=== PATIENT | female | born 1965 | race Caucasian/White ===

== ENCOUNTER 2020-07-24 14:37 | Inpatient (IN) ==
[2020-07-24] MEDS: 0.9 % Sodium Chloride 1,000 ML IVC SCH (15:45)
[2020-07-24 17:01] LABS: Bacteria,Urine Few per hpf (None-Few); Bilirubin,Urine Negative (Negative); Blood,Urine Negative (Negative); Clarity,Urine Clear (Clear); Color,Urine Light-Yellow (Yellow); Glucose,Urine (UA) Normal (Normal); Hyaline Casts,Urine Few per lpf (None Seen); Ketones,Urine Negative (Negative); Leukocyte Esterase,Urine Moderate (Negative); Nitrite,Urine Negative (Negative); PH,Urine 5.5 pH Units (5.0-8.0); Protein,Urine Trace mg/dL (Neg-Trace); RBC,Urine 0-3 per hpf (0-3); Specific Gravity,Urine 1.012 (1.010-1.025); Squamous Epithelial Cell,Urine Few per hpf (None-Few); Urobilinogen,Urine Normal (Normal); WBC,Urine 15-30 per hpf (0-3)
[2020-07-24 17:02] LABS: Sodium, Urine 23.1 mEq/L
[2020-07-24] MEDS ORDERED: Naloxone 0.4 MG/ML INJ IVP PRN (17:30)
[2020-07-24] MEDS: *HR* Heparin 5,000 UNIT/ML VIAL SQ SCH (17:58)
[2020-07-25] MEDS: 0.9 % Sodium Chloride 1,000 ML IVC SCH ×2 (03:57→12:20)
[2020-07-25] MEDS: *HR* Heparin 5,000 UNIT/ML VIAL SQ SCH ×2 (05:01→15:59)
[2020-07-25 05:44] LABS: Eosinophils # 0.2 K/mcL (0.0-0.6); Eosinophils % 4.4 %; Hematocrit 22.6 % (35.3-44.9); Immature Granulocytes % 0.5 % (0-4); Lymphocytes # 1.1 K/mcL (0.6-4.6); Lymphocytes % 25.9 %; Mean Corpuscular HGB Conc 32.7 g/dL (31.6-35.5); Mean Corpuscular Volume 100.9 fL (83.0-100.0); Mean Platelet Volume 10.3 fL (9.4-12.4); Monocytes # 0.6 K/mcL (0.0-1.3); Monocytes % 14.6 %; Neutrophils # 2.2 K/mcL (1.6-8.9); Platelet Count 276 K/mcL (140-400); Red Blood Count 2.24 M/mcL (3.82-4.97); Red Cell Distribution Width 12.3 % (11.5-14.5); Segmented Neutrophils % 53.6 %
[2020-07-25 05:45] LABS: Hemoglobin 7.4 g/dL (11.5-15.4); White Blood Count 4.1 K/mcL (4.3-11.1)
[2020-07-25 06:05] LABS: Calcium 9.1 mg/dL (8.6-10.3); Magnesium 1.9 mg/dL (1.6-2.6); Potassium 3.5 mEq/L (3.5-5.1)
[2020-07-25 06:26] LABS: Folate 4.4 ng/mL (3.0-16.0)
[2020-07-25] MEDS ORDERED: hydrOXYzine pamoate 25 MG CAPSULE PO PRN (10:31)
[2020-07-25] MEDS ORDERED: Famotidine 20 MG TABLET PO PRN ×2 (10:31→12:56)
[2020-07-25] MEDS ORDERED: 0.9 % Sodium Chloride 500 ML IVC ONE (13:03)
[2020-07-25] MEDS: cefTRIAXone 1,000 MG in Water for inj. (sterile) 10 ML IVP SCH (13:08)
[2020-07-25 13:45] LABS: % Iron Saturation 33 % (15-50); Iron 70 mcg/dL (50-170); Transferrin 152 mg/dL (203-362)
[2020-07-25 13:47] LABS: Complement C3 110 mg/dL (87-200); Rheumatoid Factor < 10 IU/mL (Less than 14)
[2020-07-25 14:00] LABS: Ferritin 579 ng/mL (10-120)
[2020-07-25 14:25] LABS: Hepatitis B Surface Antigen Nonreactive (Nonreactive)
[2020-07-25 14:54] LABS: Hepatitis C Virus Antibody Nonreactive (Nonreactive)
[2020-07-25 14:55] LABS: Hepatitis B Core IgM Nonreactive (Nonreactive)
[2020-07-25 14:56] LABS: Hepatitis A Antibody IgM Nonreactive (Nonreactive)
[2020-07-25] MEDS: Sucralfate 1 GM TABLET PO SCH (15:57)
[2020-07-26] MEDS: 0.9 % Sodium Chloride 1,000 ML IVC SCH ×3 (00:14→20:16)
[2020-07-26 04:47] LABS: Basophils % 1.1 %; Eosinophils # 0.2 K/mcL (0.0-0.6); Eosinophils % 4.5 %; Hematocrit 23.4 % (35.3-44.9); Hemoglobin 7.8 g/dL (11.5-15.4); Immature Granulocytes % 0.6 % (0-4); Lymphocytes # 1.3 K/mcL (0.6-4.6); Lymphocytes % 36.1 %; Mean Corpuscular HGB Conc 33.3 g/dL (31.6-35.5); Mean Corpuscular Hemoglobin 33.9 pg (28.0-33.3); Mean Corpuscular Volume 101.7 fL (83.0-100.0); Mean Platelet Volume 10.4 fL (9.4-12.4); Monocytes # 0.5 K/mcL (0.0-1.3); Monocytes % 14.4 %; Neutrophils # 1.5 K/mcL (1.6-8.9); Platelet Count 307 K/mcL (140-400); Red Cell Distribution Width 12.4 % (11.5-14.5); Segmented Neutrophils % 43.3 %; White Blood Count 3.6 K/mcL (4.3-11.1)
[2020-07-26 05:05] LABS: Calcium 8.7 mg/dL (8.6-10.3); Magnesium 1.8 mg/dL (1.6-2.6); Phosphorous 3.4 mg/dL (2.7-4.5); Potassium 3.3 mEq/L (3.5-5.1)
[2020-07-26] MEDS: *HR* Heparin 5,000 UNIT/ML VIAL SQ SCH ×2 (05:31→17:46)
[2020-07-26] MEDS: Loratadine 10 MG TABLET PO SCH (09:19)
[2020-07-26] MEDS: Sucralfate 1 GM TABLET PO SCH ×2 (09:20→15:45)
[2020-07-26] MEDS: cefTRIAXone 1,000 MG in Water for inj. (sterile) 10 ML IVP SCH (15:45)
[2020-07-26] MEDS: DiphenhydraMINE CREAM 28.4 GM TUBE TP PRN (20:16)
[2020-07-27 01:13] LABS: Basophils % 0.9 %; Eosinophils # 0.2 K/mcL (0.0-0.6); Eosinophils % 4.5 %; Hematocrit 22.8 % (35.3-44.9); Hemoglobin 7.4 g/dL (11.5-15.4); Immature Granulocytes % 0.6 % (0-4); Lymphocytes # 1.3 K/mcL (0.6-4.6); Lymphocytes % 38.5 %; Mean Corpuscular HGB Conc 32.5 g/dL (31.6-35.5); Mean Corpuscular Volume 101.8 fL (83.0-100.0); Mean Platelet Volume 10.1 fL (9.4-12.4); Monocytes # 0.5 K/mcL (0.0-1.3); Monocytes % 13.9 %; Neutrophils # 1.4 K/mcL (1.6-8.9); Platelet Count 302 K/mcL (140-400); Red Blood Count 2.24 M/mcL (3.82-4.97); Red Cell Distribution Width 12.6 % (11.5-14.5); Segmented Neutrophils % 41.6 %; White Blood Count 3.3 K/mcL (4.3-11.1)
[2020-07-27 01:32] LABS: Calcium 8.6 mg/dL (8.6-10.3); Magnesium 1.7 mg/dL (1.6-2.6); Phosphorous 2.6 mg/dL (2.7-4.5); Potassium 4.3 mEq/L (3.5-5.1)
[2020-07-27] MEDS: 0.9 % Sodium Chloride 1,000 ML IVC SCH ×2 (06:03→17:00)
[2020-07-27] MEDS: *HR* Heparin 5,000 UNIT/ML VIAL SQ SCH ×2 (06:04→17:01)
[2020-07-27] MEDS: Sucralfate 1 GM TABLET PO SCH ×2 (07:54→17:01)
[2020-07-27] MEDS: DiphenhydraMINE CREAM 28.4 GM TUBE TP PRN ×2 (07:57→17:09)
[2020-07-27] MEDS: Loratadine 10 MG TABLET PO SCH (07:59)
[2020-07-27 10:32] LABS: Serine Protease-3 Antibody 4 AU/mL (0-19)
[2020-07-27] MEDS: cefTRIAXone 1,000 MG in Water for inj. (sterile) 10 ML IVP SCH (14:29)
[2020-07-28] MEDS: Ondansetron 4 MG/2 ML VIAL IVP PRN ×3 (00:30→23:03)
[2020-07-28 02:27] LABS: Calcium 9.1 mg/dL (8.6-10.3); Potassium 4.2 mEq/L (3.5-5.1)
[2020-07-28] MEDS: 0.9 % Sodium Chloride 1,000 ML IVC SCH (02:58)
[2020-07-28] MEDS: *HR* Heparin 5,000 UNIT/ML VIAL SQ SCH ×2 (05:05→16:10)
[2020-07-28 08:14] LABS: ANA IgG by ELISA NONE DETECTED (None Detected)
[2020-07-28 08:44] LABS: Basophils % 1.1 %; Eosinophils # 0.2 K/mcL (0.0-0.6); Eosinophils % 4.4 %; Hematocrit 21.6 % (35.3-44.9); Immature Granulocytes % 0.3 % (0-4); Lymphocytes # 1.4 K/mcL (0.6-4.6); Lymphocytes % 38.3 %; Mean Corpuscular HGB Conc 32.4 g/dL (31.6-35.5); Mean Corpuscular Hemoglobin 33.7 pg (28.0-33.3); Mean Corpuscular Volume 103.8 fL (83.0-100.0); Mean Platelet Volume 9.5 fL (9.4-12.4); Monocytes # 0.4 K/mcL (0.0-1.3); Monocytes % 11.6 %; Neutrophils # 1.6 K/mcL (1.6-8.9); Platelet Count 277 K/mcL (140-400); Red Blood Count 2.08 M/mcL (3.82-4.97); Red Cell Distribution Width 12.8 % (11.5-14.5); Segmented Neutrophils % 44.3 %; White Blood Count 3.6 K/mcL (4.3-11.1)
[2020-07-28] MEDS ORDERED: Pantoprazole 40 MG VIAL IVP ONE (09:23)
[2020-07-28] MEDS ORDERED: Famotidine 20 MG TABLET PO SCH ×2 (09:30→21:00)
[2020-07-28] MEDS: Loratadine 10 MG TABLET PO SCH (10:15)
[2020-07-28] MEDS: Sucralfate 1 GM TABLET PO SCH ×2 (10:16→16:10)
[2020-07-28] MEDS: DiphenhydraMINE CREAM 28.4 GM TUBE TP PRN (10:17)
[2020-07-28] MEDS: cefTRIAXone 1,000 MG in Water for inj. (sterile) 10 ML IVP SCH (13:23)
[2020-07-28] MEDS: Pantoprazole 40 MG VIAL IVP SCH (16:09)
[2020-07-29 03:47] LABS: Basophils # 0.1 K/mcL (0.0-0.2); Basophils % 1.1 %; Eosinophils # 0.2 K/mcL (0.0-0.6); Eosinophils % 3.6 %; Hematocrit 23.1 % (35.3-44.9); Hemoglobin 7.5 g/dL (11.5-15.4); Immature Granulocytes % 0.2 % (0-4); Lymphocytes # 1.8 K/mcL (0.6-4.6); Lymphocytes % 40.9 %; Mean Corpuscular HGB Conc 32.5 g/dL (31.6-35.5); Mean Corpuscular Hemoglobin 33.5 pg (28.0-33.3); Mean Corpuscular Volume 103.1 fL (83.0-100.0); Mean Platelet Volume 9.7 fL (9.4-12.4); Monocytes # 0.4 K/mcL (0.0-1.3); Monocytes % 9.1 %; Platelet Count 290 K/mcL (140-400); Red Blood Count 2.24 M/mcL (3.82-4.97); Red Cell Distribution Width 12.6 % (11.5-14.5); Segmented Neutrophils % 45.1 %; White Blood Count 4.5 K/mcL (4.3-11.1)
[2020-07-29 04:03] LABS: Calcium 8.9 mg/dL (8.6-10.3); Potassium 3.4 mEq/L (3.5-5.1)
[2020-07-29] MEDS: *HR* Heparin 5,000 UNIT/ML VIAL SQ SCH (05:21)
[2020-07-29] MEDS: Pantoprazole 40 MG VIAL IVP SCH (05:22)
[2020-07-29] MEDS: Sucralfate 1 GM TABLET PO SCH (08:24)
[2020-07-29] MEDS: Loratadine 10 MG TABLET PO SCH (08:25)
[2020-07-29 11:51] VITALS: BP 111/76
== END 2020-07-29 14:37 | disposition home or self-care (01) | DRG 682 ==
LOC: 2ANU 14:37 → EMEROOARM 14:37 → SUATTDRO 17:06 → 2ANU 17:44
PROVIDERS: ADMIT Student in an Organized Health Care Education/Training Program; ATTEND Family Medicine